=== PATIENT | female | born 1975 | race American Indian/Alaskan Native ===

== ENCOUNTER 2019-02-26 08:51 | Emergency (ER) | payer SELFPAY ==
[2019-02-26 08:56] VITALS: BP 169/98
[2019-02-26] MEDS ORDERED: IBUPROFEN PO ONE (10:20)
--- NOTE | 2019-02-26 10:23 | Emergency Department Report ---
ED ENT HPI - General Chief complaint: Earache Stated complaint: EARACHE IN BOTH EARS/HEARING PROBLEMS Time Seen by Provider: 02/26/19 10:16 Source: patient Mode of arrival: Ambulatory Limitations: No Limitations - History of Present Illness Initial comments: 44-year-old -[place] female with no past medical history comes in complaining of bilateral ear pain. Patient reports that she's had ear irritation for 1 week consistent of itchiness and pain has started yesterday. Patient does admit to recent washing her hair. Patient denies fever chills no nausea and vomiting. She does admit to discharge from the right ear. MD complaint: ear pain Onset/Timin -: days(s) Location: R ear, L ear Severity: moderate Quality: stabbing, aching, sharp Consistency: constant Improves with: none Worsens with: other (touching her pulling on her ear) Associated Symptoms: discharge from ear - Related Data Previous Rx's Medication Instructions Recorded Last Taken Type Amoxicillin [Trimox CAP] 500 mg PO Q8H #30 capsule 02/26/19 Unknown Rx Ibuprofen [Motrin 600 MG tab] 600 mg PO Q8H PRN #30 tablet 02/26/19 Unknown Rx Neomy/Polymyx B/Hc (Otic) Soln 4 drops AU TID 10 Days #1 bottle 02/26/19 Unknown Rx [Cortisporin (Otic) Soln] Allergies Allergy/AdvReac Type Severity Reaction Status Date / Time No Known Allergies Allergy Unverified 02/26/19 08:54 ED Dental HPI - General Chief complaint: Earache Stated complaint: EARACHE IN BOTH EARS/HEARING PROBLEMS Time Seen by Provider: 02/26/19 10:16 Source: patient Mode of arrival: Ambulatory Limitations: No Limitations - Related Data Previous Rx's Medication Instructions Recorded Last Taken Type Amoxicillin [Trimox CAP] 500 mg PO Q8H #30 capsule 02/26/19 Unknown Rx Ibuprofen [Motrin 600 MG tab] 600 mg PO Q8H PRN #30 tablet 02/26/19 Unknown Rx Neomy/Polymyx B/Hc (Otic) Soln 4 drops AU TID 10 Days #1 bottle 02/26/19 Unknown Rx [Cortisporin (Otic) Soln] Allergies Allergy/AdvReac Type Severity Reaction Status Date / Time No Known Allergies Allergy Unverified 02/26/19 08:54 ED Review of Systems ROS: Stated complaint: EARACHE IN BOTH EARS/HEARING PROBLEMS Other details as noted in HPI Comment: All other systems reviewed and negative ED Past Medical Hx - Past Medical History Previous Medical History?: No - Surgical History Past Surgical History?: No - Social History Smoking Status: Never Smoker Substance Use Type: None - Medications Home Medications: Home Medications Medication Instructions Recorded Confirmed Last Taken Type Amoxicillin [Trimox CAP] 500 mg PO Q8H #30 capsule 02/26/19 Unknown Rx Ibuprofen [Motrin 600 MG tab] 600 mg PO Q8H PRN #30 tablet 02/26/19 Unknown Rx Neomy/Polymyx B/Hc (Otic) Soln 4 drops AU TID 10 Days #1 bottle 02/26/19 Unknown Rx [Cortisporin (Otic) Soln] ED Physical Exam - General Limitations: No Limitations General appearance: alert, in no apparent distress - Head Head exam: Present: atraumatic, normocephalic - Eye Eye exam: Present: normal appearance - Expanded ENT Exam Expanded TM/Canal exam: Loss of Landmarks: Right TM, Left TM, Canal Discharge: Right TM, Canal Tenderness: Right TM, Left TM (ear canal swelling) - Neck Neck exam: Present: normal inspection - Respiratory Respiratory exam: Present: normal lung sounds bilaterally. Absent: respiratory distress - Cardiovascular Cardiovascular Exam: Present: regular rate, normal rhythm. Absent: systolic murmur, diastolic murmur, rubs, gallop - Neurological Exam Neurological exam: Present: alert, oriented X3 - Psychiatric Psychiatric exam: Present: normal affect, normal mood - Skin Skin exam: Present: warm, dry, intact, normal color. Absent: rash ED Course Vital Signs 02/26/19 08:55 Temperature 99.9 F H Pulse Rate 116 H Respiratory 16 Rate Blood Pressure 169/98 [Right] O2 Sat by Pulse 96 Oximetry ED Medical Decision Making - Medical Decision Making 44-year-old -[place] female with no past medical history comes in complaining of bilateral ear pain. Patient reports that she's had ear irritation for 1 week consistent of itchiness and pain has started yesterday. Patient does admit to recent washing her hair. Patient denies fever chills no nausea and vomiting. She does admit to discharge from the right ear.. Patient will be placed on Cortisporin eardrops for 10 days. Patient has a low-grade fever and mildly tachycardic place patient on amoxicillin as well not able to visualize the tympanic membrane secondary to bilateral ear canal edema. Critical care attestation.: If time is entered above; I have spent that time in minutes in the direct care of this critically ill patient, excluding procedure time. ED Disposition Clinical Impression: Otitis externa Qualifiers: Otitis externa type: swimmer's ear Chronicity: acute Laterality: bilateral Qualified Code(s): H60.333 - Swimmer's ear, bilateral Disposition: - TO HOME OR SELFCARE Is pt being admited?: No Does the pt Need Aspirin: No Condition: Stable Instructions: Otitis Externa (ED) Additional Instructions: Take medications as prescribed. Follow-up which her primary care provider or ear nose and throat doctor. I have listed the animal researcher below. Prescriptions: Neomy/Polymyx B/Hc (Otic) Soln [Cortisporin (Otic) Soln] 4 drops AU TID 10 Days #1 bottle Ibuprofen [Motrin 600 MG tab] 600 mg PO Q8H PRN #30 tablet PRN Reason: Pain , Severe (7-10) Amoxicillin [Trimox CAP] 500 mg PO Q8H #30 capsule Referrals: SONIA BRAMBILA MD [Staff Physician] - 3-5 Days
== END 2019-02-26 10:31 | disposition home or self-care (01) ==
LOC: ED 08:51
DX: H60.333 Swimmer's ear, bilateral (principal)
CPT/HCPCS: 99282